=== PATIENT | female | born 1995 | race Hispanic/Latino ===

== ENCOUNTER 2018-08-06 06:26 | Day surgery (SDC) | payer OTHER ==
[2018-08-05 14:31] LABS: Absolute Lymphocytes (CBC) 3.7 K/uL (0.7-4.9); Absolute Monocytes 0.7 K/uL (0.1-1.3); Absolute Neutrophil 6.7 K/uL (1.8-8.0); Basophils % 0.7 % (0-1.3); Eosinophils % 4.7 % (0-4.4); Hematocrit 43.7 % (36.0-45.0); Lymphocytes % 31.6 % (15.3-44.8); MPV 9.3 fL (7.6-11.3); Monocytes % 5.8 % (3.3-12.3); RBC Red Blood Cell Count 4.86 M/uL (3.86-4.86)
[2018-08-06] MEDS ORDERED: PROPOFOL 200 MG/20 ML VIAL IV ONE (07:03)
[2018-08-06] MEDS ORDERED: FENTANYL CITR 100 MCG/2 ML ONE (07:03)
[2018-08-06] MEDS ORDERED: MIDAZOLAM HCL 2 MG/2 ML INJ ONE (07:03)
[2018-08-06] MEDS ORDERED: LIDOCAINE 1% MPF 2 ML AMPULE ONE (07:05)
[2018-08-06] MEDS ORDERED: Ringers Lactate 1,000 ML IV ONE (07:08)
[2018-08-06] MEDS ORDERED: CEFAZOLIN/SWI 1gm 2 GM/20 ML SYR ONE (07:09)
[2018-08-06] MEDS ORDERED: LIDOCAINE 1.5% W/EPI AMP 5 ML ONE (07:12)
[2018-08-06] MEDS ORDERED: BACITRACIN OINTMENT 15 GM TUBE TOP ONE (07:12)
[2018-08-06] MEDS ORDERED: VASOPRESSIN 20 UNIT/ML VIAL ONE (07:13)
[2018-08-06] MEDS ORDERED: NS 0.9% VIAL 30 ML ONE (07:14)
--- NOTE | 2018-08-06 08:08 | P.BOP ---
Preoperative diagnosis: Vulvar cyst Postoperative diagnosis: same Primary procedure: cyst excision Estimated blood loss: 10ml Specimen: cyst Anesthesia: General Complications: None Transferred to: Recovery Room Condition: Good
--- NOTE | 2018-08-06 15:47 | PREOPHP ---
Date of Admission: 08/06/2018 History Of Present Illness: Ms. Young is a 23-year-old single female, nulligravid, who will be admitted for excision of a perineal cyst. She has noticed this over the last several months, lowe s not seem to have changed, but that intermittently is tender. Attempted aspiration in the office wa s unsuccessful, so she is admitted for excision. Past Medical History: Includes prior ankle surgery, prior wisdom tooth surgery and adenoidectomy. Current Medications: Include oral contraceptives and a steroid nasal spray for allergies. Family History: Noncontributory. Review of Systems: She reports no recent cough, cold, fever, or chills. No recent nausea or vomiting. She denies any b owel or bladder issues. Physical Examination: General: Obese female, in no apparent distress. Neck: Supple without adenopathy or thyromegaly. Lungs: Clear. Cardiac: Regular rate and rhythm without murmurs. Breasts: Not examined. Abdomen: Without organosplenomegaly. Pelvic: Normal female external genitalia. On top of the introitus toward her left side is an enlarg ed approximately 1.5 cm cyst. Extremities: No cyanosis, clubbing, or edema. Plan: The patient will be admitted for a cyst excision. Attempted aspiration in the office was unsu ccessful, so we will attempt to excise the cyst. Risks and benefits are discussed. She has signed operative permit. LATHA/KERLINE Voice ID: [id number]
--- NOTE | 2018-08-06 17:56 | OP ---
Surgeon: Arnoldo Casas MD Preoperative Diagnosis: Left vulvar cyst. Procedure: Excision of cyst. Postoperative Diagnosis: Left vulvar cyst. Pathology Report: Pending. Procedure In Detail: After a satisfactory level of general anesthesia was obtained, the patient was prepped and draped in the usual fashion in high leg holders with visualization of a cyst. A small in cision was made over this cyst. This was dissected. Cyst was removed. Puncture of cyst with draina ge of dark coagulated blood was noted during the procedure, but the entire cyst sac was removed. Car e to ascertain that this was from the urethra and away from the urethra was performed multi ple times during the procedure. Incision closed with subcutaneous running suture of 3-0 Vicryl, and subcuticular and a running interlocking suture on the mucosa of 3-0 Vicryl. Estimated total blood lo ss was less than 10 cc. The patient was awakened and taken recovery room in satisfactory condition. LATHA/KERLINE Voice ID: [id number] Report ID: [id number]
--- NOTE | 2018-08-06 18:02 | DS ---
Date of Discharge: 08/06/2018 Final Hospital Discharge Diagnosis: Vulvar cyst. Procedure: Excision of cyst. Postoperative Diagnosis: Vulvar cyst. Pathology Report: Pending. Hospital Course: The patient is a 23-year-old female, admitted for excision of vulvar cyst. This was performed. The patient was dismissed to be seen back in my office in 1 week. Lab include d an admission hemoglobin and hematocrit of 14.8 and 43.7, and a negative serum test. She was dismissed with prescription for Tylenol No.3 #5 for pain relief. LATHA/KERLINE Voice ID: [id number] Report ID: [id number]
== END 2018-08-06 09:15 | disposition home or self-care (01) ==
LOC: OR 06:26
PROVIDERS: ATTEND Specialist
PROC: 0UBMXZX Excision of Vulva, External Approach, Diagnostic (ICD-10-PCS; principal; 2018-08-06 07:30)
DX: N90.7 Vulvar cyst (principal)
CPT/HCPCS: 36415; 84703; 85025; 88304; J0690; J2001; J2250; J2704; J3010